=== PATIENT | female | born 1950 | race Caucasian/White ===

== ENCOUNTER → 2017-02-12 | Outpatient (CLI) | payer BC, MEDICARE ==
--- NOTE | 2017-02-13 10:58 | MM ---
Reason for exam: additional evaluation requested from prior study. Last mammogram was performed 6 months ago. History: Patient is postmenopausal and has history of high-risk lesion on a previous biopsy at age 65. Family history of breast cancer in mother at age 74. Benign MG pre op needle loc RT of the right breast, January 30, 2016. Benign US breast aspiration single RT of the right breast, December 27, 2015. High risk US biopsy breast VAD RT of the right breast, December 27, 2015. MG discontinued stereo core RT of the right breast, June 06, 2014. Physical Findings: Nurse did not find any significant physical abnormalities on exam. MG Diagnostic Mammo w CAD ARIELLE Bilateral CC and MLO view(s) were taken. Prior study comparison: August 05, 2016, right breast MG diagnostic mammo RT w CAD. December 27, 2015, right breast MG diagnostic mammo RT wo CAD. There are scattered fibroglandular densities. There is no discrete abnormality at BB on left MLO view. Post surgical changes on the right. No significant new findings when compared with previous films. These results were verbally communicated with the patient and result sheet given to the patient on 02/12/17. ASSESSMENT: Incomplete: need additional imaging evaluation, BI-RAD 0 RECOMMENDATION: Ultrasound of the left breast.
--- NOTE | 2017-02-13 11:01 | USB ---
Reason for exam: additional evaluation requested from abnormal screening. History: Patient is postmenopausal and has history of high-risk lesion on a previous biopsy at age 65. Family history of breast cancer in mother at age 74. Benign MG pre op needle loc RT of the right breast, January 30, 2016. Benign US breast aspiration single RT of the right breast, December 27, 2015. High risk US biopsy breast VAD RT of the right breast, December 27, 2015. MG discontinued stereo core RT of the right breast, June 06, 2014. US Breast Limited BILAT Right breast ultrasound includes all four quadrants, the retroareolar region and axilla. Finding demonstrate a 20 x 19 x 16mm hypoechoic lesion at 5 o'clock shadowing at scar, a 4 x 3 x 3mm cystic cluster lesion at 9 o'clock, and a 4 x 3 x 4mm cystic cluster lesion at 6 o'clock. Left breast ultrasound is negative. These results were verbally communicated with the patient and result sheet given to the patient on 02/12/17. ASSESSMENT: Probably benign, BI-RAD 3 RECOMMENDATION: Follow-up diagnostic mammogram of both breasts in 1 year. Manage patient on a clinical basis.
== END | disposition home or self-care (01) ==
LOC: RADMAMWWP 14:44
PROVIDERS: ATTEND Surgery
DX: R92.2 Inconclusive mammogram (principal); R92.8 Other abnormal and inconclusive findings on diagnostic imaging of breast; Z80.3 Family history of malignant neoplasm of breast
CPT/HCPCS: 76642; G0204

== ENCOUNTER → 2018-03-25 | Outpatient (CLI) | payer MEDICARE ==
--- NOTE | 2018-03-25 08:57 | MM ---
Reason for exam: additional evaluation requested from prior study. Last mammogram was performed 1 year and 1 month ago. History: Patient is postmenopausal and has history of high-risk lesion on a previous biopsy at age 65. Family history of breast cancer in mother at age 74. Benign MG pre op needle loc RT of the right breast, January 30, 2016. Benign US breast aspiration single RT of the right breast, December 27, 2015. High risk US biopsy breast VAD RT of the right breast, December 27, 2015. MG discontinued stereo core RT of the right breast, June 06, 2014. Physical Findings: Nurse did not find any significant physical abnormalities on exam. MG 3D Diag Mammo W/Cad ARIELLE Bilateral CC and MLO view(s) were taken. Prior study comparison: February 12, 2017, bilateral MG diagnostic mammo w CAD ARIELLE. February 12, 2017, bilateral US breast limited BILAT. August 05, 2016, right breast MG diagnostic mammo RT w CAD. August 05, 2016, right breast US breast RT. There are scattered fibroglandular densities. Chronic nodularity subareolar right breast. Post excision changes inferior right breast. Continued improvement from prior but with some residual focal asymmetry that can be reassessed in 6 months. These results were verbally communicated with the patient and result sheet given to the patient on 03/25/18. ASSESSMENT: Incomplete: need additional imaging evaluation, BI-RAD 0 RECOMMENDATION: Ultrasound of the right breast. (as ordered)
--- NOTE | 2018-03-25 08:59 | USB ---
Reason for exam: clinical finding. History: Patient is postmenopausal and has history of high-risk lesion on a previous biopsy at age 65. Family history of breast cancer in mother at age 74. Benign MG pre op needle loc RT of the right breast, January 30, 2016. Benign US breast aspiration single RT of the right breast, December 27, 2015. High risk US biopsy breast VAD RT of the right breast, December 27, 2015. MG discontinued stereo core RT of the right breast, June 06, 2014. US Breast RT Right complete breast ultrasound includes all four quadrants, the retroareolar region and axilla. Finding demonstrates a 1.8 x 1.9 x 1.5cm hypoechoic lesion, shadowing at scar at 5 o'clock, a 0.5 x 0.5 x 0.5cm cystic cluster at 6 o'clock, a 0.2 x 0.5 x 0.4cm cystic cluster at 9 o'clock and a 0.5 x 0.2 x 0.3cm cystic cluster at 3 o'clock. These results were verbally communicated with the patient and result sheet given to the patient on 03/25/18. ASSESSMENT: Probably benign, BI-RAD 3 RECOMMENDATION: Follow-up diagnostic mammogram of the right breast in 6 months.
== END | disposition home or self-care (01) ==
LOC: RADMAMWWP 07:34
PROVIDERS: ATTEND Surgery
DX: N63.10 Unspecified lump in the right breast, unspecified quadrant (principal); N63.20 Unspecified lump in the left breast, unspecified quadrant; R92.8 Other abnormal and inconclusive findings on diagnostic imaging of breast
CPT/HCPCS: 77066; 76641; G0279; 77062

== ENCOUNTER → 2018-03-26 | Outpatient (CLI) | payer BC, MEDICARE ==
[2018-03-26 09:09] VITALS: BP 133/68; PULSE 76; BMI 34.3
--- NOTE | 2018-03-26 09:40 | P.GSHP ---
History of Present Illness H&P Date: 03/26/18 Mrs. Price is a 67-year-old white female who is status post bilateral mammogram and ultrasound of the right breast. The bilateral mammogram was performed on which revealed some chronic nodularity subareolar right breast and post -excision changes inferior right breast. Was recommended she have a right breast ultrasound which revealed a 1.9 cm hypoechoic lesion shadowing eschar at 5:00, a 0.5 cm cystic cluster at 6:00, 8.5 cm cystic cluster at 9:00, and a 0.5 cm cystic cluster at 3:00. These were felt to be probably benign and repeat right breast diagnostic mammogram in 6 months time was recommended. The patient does not feel any masses of concern in her breast. She does not complain of any pain in her breast. She has no nipple discharge or changes of concern. Family history: 1. Mother: Bilateral breast cancer, first at 74 secondary 80 2. Father: Prostate cancer Menarche: 13 Pregnancies: 4 pregnancies, one miscarriage 3 live births, breast fed all for short time, first full-term at 22 Menopause: mid 50's Hormone: none BCP: 1 year Past surgical history: 1. D&C 2. Failed bladder suspension 3. Right breast biopsy Past medical history: 1. SVT 2. Hypertension 3. High cholesterol Social history: Alcohol:negative Smoking: Negative Drugs: Negative Review of systems: HEENT: Glasses for reading Lungs: Negative Heart: Hypertension SVT GI: GERD : None Musculoskeletal: Arthritis Left Knee ALLERGIES: Negative Endocrine: Negative Skin: Negative - Constitutional Constitutional: Denies chills, Denies fever - EENT Eyes: bilateral as per HPI Ears: bilateral: decreased hearing Ears, nose, mouth and throat: Reports as per HPI - Breasts Breasts: bilateral: as per HPI - Cardiovascular Cardiovascular: Reports as per HPI - Respiratory Respiratory: Reports as per HPI - Gastrointestinal Gastrointestinal: Reports as per HPI - Genitourinary (Female) Genitourinary: Reports as per HPI - Menstruation Menstruation: Reports postmenopausal - Genitourinary (Male) Genitourinary: Denies dysuria, Denies hematuria - Musculoskeletal Musculoskeletal: Denies myalgias - Integumentary Integumentary: Reports as per HPI - Neurological Neurological: Denies numbness, Denies weakness - Psychiatric Psychiatric: Denies anxiety, Denies depression - Endocrine Endocrine: Reports as per HPI - Hematologic/Lymphatic Comment: none - Allergic/Immunologic Allergic/Immunologic: Reports as per HPI Past Medical History Past Medical History: GERD/Reflux, Hyperlipidemia, Hypertension, Supraventricular Tachycardia (SVT) Additional Past Medical History / Comment(s): varicose veins, History of Any Multi-Drug Resistant Organisms: None Reported Additional Past Surgical History / Comment(s): breast biopsy, D&C, attempted bladder sling-failed, Past Anesthesia/Blood Transfusion Reactions: Motion Sickness Past Psychological History: No Psychological Hx Reported Smoking Status: Never smoker Past Alcohol Use History: None Reported Past Drug Use History: None Reported - Past Family History Mother Family Medical History: Cancer Additional Family Medical History / Comment(s): breast Father Family Medical History: Cancer, Pulmonary Embolus Medications and Allergies Home Medications Medication Instructions Recorded Confirmed Type Carvedilol [Coreg] 6.25 mg PO BID 01/25/16 03/26/18 History Glucosam/Presley-Msm1/C/Lenny/Bosw 1 each PO DAILY 01/25/16 03/26/18 History [Glucosamine-Chondroitin Tablet] Pantoprazole Sodium [Protonix] 40 mg PO QAM 01/25/16 03/26/18 History Pitavastatin Calcium [Livalo] 1 mg PO HS 01/25/16 03/26/18 History Triamterene/Hydrochlorothiazid 1 cap PO DAILY 01/25/16 03/26/18 History [Dyazide 37.5-25 Capsule] Valsartan 40 tbsp PO DAILY 03/26/18 03/26/18 History Allergies Allergy/AdvReac Type Severity Reaction Status Date / Time codeine Allergy Rash/Hives Verified 01/30/16 08:05 Surgical - Exam Vital Signs Pulse BP Pulse Ox 76 133/68 93 L 03/26/18 09:04 03/26/18 09:04 03/26/18 09:04 - General obese - Eyes normal ocular movement - ENT no hearing loss, no congestion - Neck no masses, trachea midline - Respiratory normal respiratory effort, clear to auscultation - Cardiovascular Rhythm: regular Heart Sounds: normal: S1, S2 - Abdomen Abdomen: soft, non tender, no guarding, no rigid, no rebound - Integumentary Bilateral breast exam: Right breast: Nipple inverted no dominant masses or nodules of concern were multiple positional exam Right axilla: No adenopathy of concern Left breast: Nipple inverted no dominant masses or nodules of concern of multiple positional exam Left axilla: No adenopathy of concern - Neurologic no disoriented, no combative - Musculoskeletal normal gait - Psychiatric oriented to time, oriented to person, oriented to place, speech is normal, memory intact Results mammogram and ultrasound results reviewed Assessment and Plan Assessment: Impression/plan: 1. Abnormal right breast mammograms and ultrasound 2. Hypertension 3. SVT Plan: 1. Repeat right breast mammogram and ultrasound in 6 months time 2. Repeat appointment in 6 months time 3. Medical management of hypertension and SVT CC: DR. Germán Jules, Dr. Moran
== END | disposition home or self-care (01) ==
LOC: WWCWWP 08:59
PROVIDERS: ATTEND Surgery
DX: Z53.9 Procedure and treatment not carried out, unspecified reason (principal)

== ENCOUNTER → 2018-09-25 | Outpatient (CLI) | payer MEDICARE ==
[2018-09-25 09:00] VITALS: BP 144/71; PULSE 66; RESP 18; TEMP 97.1; BMI 35.4
--- NOTE | 2018-09-25 10:00 | P.PN ---
Subjective Progress Note Date: 09/25/18 Principal diagnosis: abnormal right breast mammogram Alia is a 67-year-old white female status post right breast lumpectomy for a lesion of concern in 2016. This was not cancer. The patient had a repeat right breast mammogram performed on 09/25/2018 which was felt to be benign. She does not feel anything of concern in her breast. She has no nipple discharge or skin changes of concern. Family history: 1. Mother bilateral breast cancer first a 74 second at 80 2. Father: Prostate cancer Hormonal history: Menarche: 13 Pregnancies: 4 pregnancies, one miscarriage, 3 live births, breast fed all for a short time, first full-term at 22 Menopause: Mid 50s Hormones: None Procedure post: One year Past surgical history: 1. D&C 2. Failed bladder suspension 3. Right breast biopsy Past medical history: 1. SVT 2. Hypertension 3. High cholesterol Social history: Alcohol: Negative Smoking: Negative Drugs: Negative Review of systems: HEENT: Glasses for reading Lungs: Negative Heart: Hypertension and SVT GI: GERD : Negative Musculoskeletal: Arthritis left knee ALLERGIES: Negative Endocrine: Negative Skin: Negative Objective - Vital Signs Vital signs: Vital Signs Temp 97.1 F L 09/25/18 08:53 Pulse 66 09/25/18 08:53 Resp 18 09/25/18 08:53 BP 144/71 09/25/18 08:53 Pulse Ox 94 L 09/25/18 08:53 Intake & Output 09/24/18 09/25/18 09/25/18 18:59 06:59 18:59 Weight 90.718 kg - Exam BMI 35.4 - Constitutional General appearance: Present: cooperative, obese - EENT Eyes: Present: EOMI ENT: Present: hearing grossly normal - Neck Neck: Present: normal ROM - Respiratory Respiratory: bilateral: CTA - Cardiovascular Rhythm: regular Heart sounds: normal: S1, S2 - Gastrointestinal General gastrointestinal: Present: soft - Integumentary Integumentary: Present: normal turgor - Musculoskeletal Musculoskeletal: Present: gait normal - Psychiatric Psychiatric: Present: A&O x's 3, appropriate affect, intact judgment & insight - Additional findings Additional findings: Breast examination: Right breast: Multi-positional exam no dominant masses or nodules of concern, chronic inversion of the nipple Right axilla: No adenopathy of concern Left breast: Multi-positional exam no dominant masses or nodules of concern, chronic inversion of the nipple Left axilla: No adenopathy of concern - Allied health notes Allied Health Notes Comment(s): Mammogram of the right breast was reviewed with radiology this is felt to be benign and patient will have repeat bilateral diagnostic mammograms in 6 months Assessment and Plan Assessment: Impression: 1. Fibrocystic breast changes 2. Hypertension/SVT 3. GERD Plan: 1. Repeat bilateral mammogram in 6 months time with physician exam at that time 2. Medical management of medical conditions CC: Dr. Cisse, [facility]
--- NOTE | 2018-09-27 09:15 | MM ---
Reason for exam: follow-up at short interval from prior study. Last mammogram was performed 6 months ago. History: Patient is postmenopausal and has history of high-risk lesion on a previous biopsy at age 65. Family history of breast cancer in mother at age 74. Benign MG pre op needle loc RT of the right breast, January 30, 2016. Benign US breast aspiration single RT of the right breast, December 27, 2015. High risk US biopsy breast VAD RT of the right breast, December 27, 2015. MG discontinued stereo core RT of the right breast, June 06, 2014. Physical Findings: Nurse did not find any significant physical abnormalities on exam. MG 3D Diag Mammo W/Cad RT CC and MLO view(s) were taken of the right breast. Prior study comparison: March 25, 2018, bilateral MG 3d diag mammo w/cad ARIELLE. February 12, 2017, bilateral MG diagnostic mammo w CAD ARIELLE. There are scattered fibroglandular densities. No suspicious abnormality. Right lower inner quadrant focal asymmetry appears as fibroglandular tissue adjacent to the lumpectomy site. A precautionary 6 month follow up mammogram will be done. The patient will be due for her bilateral at that time. These results were verbally communicated with the patient and result sheet given to the patient on 09/25/18. ASSESSMENT: Probably benign, BI-RAD 3 RECOMMENDATION: Follow-up diagnostic mammogram of both breasts in 6 months.
== END | disposition home or self-care (01) ==
LOC: RADMAMWWP 06:49
PROVIDERS: ATTEND Surgery
DX: N63.10 Unspecified lump in the right breast, unspecified quadrant (principal)
CPT/HCPCS: 77065; G0279; 77061

== ENCOUNTER → 2019-04-01 | Outpatient (CLI) | payer MEDICARE ==
--- NOTE | 2019-04-01 08:50 | MM ---
Reason for exam: follow-up at short interval from prior study. Last mammogram was performed 6 months ago. History: Patient is postmenopausal and has history of high-risk lesion on a previous biopsy at age 65. Family history of breast cancer in mother at age 74. Benign MG pre op needle loc RT of the right breast, January 30, 2016. Benign US breast aspiration single RT of the right breast, December 27, 2015. High risk US biopsy breast VAD RT of the right breast, December 27, 2015. MG discontinued stereo core RT of the right breast, June 06, 2014. Physical Findings: Nurse did not find any significant physical abnormalities on exam. MG 3D Diag Mammo W/Cad ARIELLE Bilateral CC and MLO view(s) were taken. Prior study comparison: September 25, 2018, right breast MG 3d diag mammo w/cad RT. March 25, 2018, bilateral MG 3d diag mammo w/cad ARIELLE. There are scattered fibroglandular densities. There are clips in the right breast lower quadrant middle position consistent with known excisional biopsy. There are benign appearing round calcifications bilaterally. There is no discrete abnormality. These results were verbally communicated with the patient and result sheet given to the patient on 04/01/19. ASSESSMENT: Benign, BI-RAD 2 RECOMMENDATION: Routine screening mammogram of both breasts in 1 year.
== END | disposition home or self-care (01) ==
LOC: RADMAMWWP 06:51
PROVIDERS: ATTEND Surgery
DX: R92.8 Other abnormal and inconclusive findings on diagnostic imaging of breast (principal)
CPT/HCPCS: 77066; G0279; 77062

== ENCOUNTER → 2019-05-27 | Outpatient (CLI) | payer MEDICARE ==
[2019-05-27 15:17] VITALS: BP 150/85; PULSE 78; RESP 18; TEMP 98.2; BMI 35.4
--- NOTE | 2019-05-27 15:53 | P.PN ---
Subjective Progress Note Date: 05/27/19 Alia is a 68-year-old white female status post right breast lumpectomy for a lesion of concern in 2016. This was not cancer. The patient had a bilateral mammogram performed on 04-01-19 which was felt to be benign. BIRADS 2 repeat mammogram in 1 year. She does not feel anything of concern in her breast. She has no nipple discharge or skin changes of concern. She does not feel any lumps masses or nodules of concern. She is not having any pain in her breast. Lauren Risk Evaluation: 5 year risk: 7.3% lifetime risk: 23% We have discussed genetic counseling the possibility of chemoprevention with an antiestrogen agent will close surveillance. At this time the patient is interested in genetic counseling this will be given information to set up that appointment. Family history: 1. Mother bilateral breast cancer first a 74 second at 80 2. Father: Prostate cancer Hormonal history: Menarche: 13 Pregnancies: 4 pregnancies, one miscarriage, 3 live births, breast fed all for a short time, first full-term at 22 Menopause: Mid 50s Hormones: None Procedure post: One year Past surgical history: 1. D&C 2. Failed bladder suspension 3. Right breast biopsy Past medical history: 1. SVT 2. Hypertension 3. High cholesterol Social history: Alcohol: Negative Smoking: Negative Drugs: Negative Review of systems: HEENT: Glasses for reading Lungs: Negative Heart: Hypertension and SVT GI: GERD : Negative Musculoskeletal: Arthritis left knee hematologic: none neuro: none Psych: none ALLERGIES: Negative Endocrine: Negative Skin: Negative Objective - Vital Signs Vital signs: Vital Signs Temp 98.2 F 05/27/19 15:14 Pulse 78 05/27/19 15:14 Resp 18 05/27/19 15:14 BP 150/85 05/27/19 15:14 Pulse Ox 94 L 05/27/19 15:14 - Exam BMI 35.4 - Constitutional General appearance: Present: obese - EENT Eyes: Present: EOMI ENT: Present: hearing grossly normal - Neck Neck: Present: normal ROM - Respiratory Respiratory: bilateral: CTA - Cardiovascular Rhythm: regular Heart sounds: normal: S1, S2 - Gastrointestinal General gastrointestinal: Present: soft - Integumentary Integumentary: Present: normal turgor - Musculoskeletal Musculoskeletal: Present: gait normal - Psychiatric Psychiatric: Present: A&O x's 3, appropriate affect, intact judgment & insight - Additional findings Additional findings: breast exam: Right breast: Multi-positional exam fibrocystic changes no dominant masses or nodules of concern chronic nipple inversion Right axilla: No adenopathy of concern Left breast: Multi-positional examined fibrocystic changes no dominant mass or notches of concern Left nipple: Chronic inversion Assessment and Plan Assessment: Impression: 1. Bilateral fibrocystic breast changes 2. Bilateral chronic mild nipple inversion 3. Positive family history of breast cancer 4. Positive history of cancer in her father with prostate cancer 5. SVT 6. Hypertension 7. High cholesterol 8. Recent bilateral mammograms BIRADS 2. Repeat bilateral mammogram in March 2020 9. High risk for breast cancer Plan: 1. Repeat bilateral mammogram in 1 year with physician exam at that time 2. Medical management of medical conditions 3. Follow-up 6 months for breast examination secondary to high risk of breast cancer CALISTA: Jorge A
== END ==
LOC: WWCWWP 14:25
PROVIDERS: ATTEND Surgery
DX: Z53.9 Procedure and treatment not carried out, unspecified reason (principal)

== ENCOUNTER → 2019-12-02 | Outpatient (CLI) | payer MEDICARE ==
[2019-12-02 10:49] VITALS: BP 127/83; PULSE 82; RESP 18; TEMP 98.3
--- NOTE | 2019-12-02 11:10 | P.PN ---
Subjective Progress Note Date: 12/02/19 Principal diagnosis: fibrocystic breast changes Alia is a 69-year-old white female who presents for breast examination. She is not complaining of any masses lumps or nodules in her breast. She is not complaining of any recent trauma or infection in the breast. Her last mammogram was performed March 2019 this was considered benign BIRADS 2 and repeat screening mammogram of left breast in 1 year was recommended. She has never had breast cancer but has had an excisional biopsy in the right breast and clips are noted in the mammogram at that site. The patient was going to have genetic testing performed but has not yet had this done. Family history: 1. Mother: Bilateral breast cancer, first at 74 secondary 80 2. Father: Prostate cancer Hormoanl History Menarche: 13 Pregnancies: 4 pregnancies, one miscarriage 3 live births, breast fed all for short time, first full-term at 22 Menopause: mid 50's Hormone: none BCP: 1 year Past surgical history: 1. D&C 2. Failed bladder suspension 3. Right breast biopsy Past medical history: 1. SVT 2. Hypertension 3. High cholesterol Social history: Alcohol:negative Smoking: Negative Drugs: Negative Review of systems: HEENT: Glasses for reading Lungs: Negative Heart: Hypertension, SVT GI: GERD : None Musculoskeletal: Arthritis Left Knee ALLERGIES: Negative Endocrine: Negative Skin: Negative - Constitutional Constitutional: Denies chills, Denies fever - Menstruation Menstruation: Reports postmenopausal - Genitourinary (Male) Genitourinary: Denies dysuria, Denies hematuria - Musculoskeletal Musculoskeletal: Denies myalgias - Integumentary Integumentary: Reports as per HPI - Neurological Neurological: Denies numbness, Denies weakness - Psychiatric Psychiatric: Denies anxiety, Denies depression - - Hematologic/Lymphatic Comment: none - Allergic/Immunologic Allergic/Immunologic: Reports as per HPI Past Medical History Past Medical History: GERD/Reflux, Hyperlipidemia, Hypertension, Supraventricular Tachycardia (SVT) Additional Past Medical History / Comment(s): varicose veins, History of Any Multi-Drug Resistant Organisms: None Reported Additional Past Surgical History / Comment(s): breast biopsy, D&C, attempted bladder sling-failed, Past Anesthesia/Blood Transfusion Reactions: Motion Sickness Past Psychological History: No Psychological Hx Reported Smoking Status: Never smoker Past Alcohol Use History: None Reported Past Drug Use History: None Reported Objective - Vital Signs Vital signs: Vital Signs Temp 98.3 F 12/02/19 10:46 Pulse 82 12/02/19 10:46 Resp 18 12/02/19 10:46 BP 127/83 12/02/19 10:46 Pulse Ox 92 L 12/02/19 10:46 Intake & Output 12/01/19 12/02/19 12/02/19 18:59 06:59 18:59 Weight 90.718 kg - Exam BMI 36.6 - Constitutional General appearance: Present: cooperative - EENT Eyes: Present: EOMI ENT: Present: hearing grossly normal - Neck Neck: Present: normal ROM - Respiratory Respiratory: bilateral: CTA - Cardiovascular Rhythm: regular Heart sounds: normal: S1, S2 - Gastrointestinal General gastrointestinal: Present: soft - Integumentary Integumentary: Present: normal turgor - Musculoskeletal Musculoskeletal: Present: gait normal - Psychiatric Psychiatric: Present: A&O x's 3, appropriate affect, intact judgment & insight - Additional findings Additional findings: breast exam: BRA 40D inspection: bilateral nipple inversion, chronic palpation: right breast: Well-healed scar from prior surgery, multiple positional exam no dominant masses or nodules of concern Right axilla: No adenopathy of concern Left breast: Multiple positional exam. Cystic breast changes no dominant masses or nodules of concern Left axilla: No adenopathy of concern Assessment and Plan Assessment: Impression: 1. Fibrocystic breast changes bilateral no dominant masses or nodules of concern 2. SVT 3. High cholesterol 4. Hypertension Plan: 1. Patient is a bilateral mammogram in March 2020 2. Follow up here after bilateral mammogram 3. Chronic nipple inversion at this time we are not concerned as his stomach this for many years Cc: encounter: 20 minutes, > 50% of time spent in planning and counselling
== END | disposition home or self-care (01) ==
LOC: WWCWWP 10:38
PROVIDERS: ATTEND Surgery
DX: Z53.9 Procedure and treatment not carried out, unspecified reason (principal)

== ENCOUNTER → 2020-04-03 | Outpatient (CLI) | payer MEDICARE ==
--- NOTE | 2020-04-05 07:47 | MM ---
Reason for exam: screening (asymptomatic). Last mammogram was performed 1 year ago. History: Patient is postmenopausal and has history of high-risk lesion on a previous biopsy at age 65. Family history of breast cancer in mother at age 74. Benign MG pre op needle loc RT of the right breast, January 30, 2016. Benign US breast aspiration single RT of the right breast, December 27, 2015. High risk US biopsy breast VAD RT of the right breast, December 27, 2015. MG discontinued stereo core RT of the right breast, June 06, 2014. Physical Findings: A clinical breast exam by your physician is recommended on an annual basis and results should be correlated with mammographic findings. MG 3D Screening Mammo W/Cad Bilateral CC and MLO view(s) were taken. Prior study comparison: April 01, 2019, bilateral MG 3d diag mammo w/cad ARIELLE. September 25, 2018, right breast MG 3d diag mammo w/cad RT. There are scattered fibroglandular densities. No significant changes when compared with prior studies. ASSESSMENT: Benign, BI-RAD 2 RECOMMENDATION: Routine screening mammogram of both breasts in 1 year.
== END | disposition home or self-care (01) ==
LOC: RADMAMWWP 07:16
PROVIDERS: ATTEND Surgery
DX: Z12.31 Encounter for screening mammogram for malignant neoplasm of breast (principal)
CPT/HCPCS: 77063; 77067

== ENCOUNTER → 2021-04-09 | Outpatient (CLI) | payer MEDICARE ==
--- NOTE | 2021-04-12 14:05 | MM ---
Reason for exam: screening (asymptomatic). Last mammogram was performed 1 year ago. History: Patient is postmenopausal and has history of high-risk lesion on a previous biopsy at age 65. Family history of breast cancer in mother at age 74. Benign MG pre op needle loc RT of the right breast, January 30, 2016. Benign US breast aspiration single RT of the right breast, December 27, 2015. High risk US biopsy breast VAD RT of the right breast, December 27, 2015. MG discontinued stereo core RT of the right breast, June 06, 2014. Physical Findings: A clinical breast exam by your physician is recommended on an annual basis and results should be correlated with mammographic findings. MG 3D Screening Mammo W/Cad Bilateral CC and MLO view(s) were taken. Prior study comparison: April 03, 2020, bilateral MG 3d screening mammo w/cad. April 01, 2019, bilateral MG 3d diag mammo w/cad ARIELLE. There are scattered fibroglandular densities. Post surgical changes on right breast. No significant changes when compared with prior studies. ASSESSMENT: Benign, BI-RAD 2 RECOMMENDATION: Routine screening mammogram of both breasts in 1 year.
== END | disposition home or self-care (01) ==
LOC: RADMAMWWP 07:16
PROVIDERS: ATTEND Surgery
DX: Z12.31 Encounter for screening mammogram for malignant neoplasm of breast (principal); Z78.0 Asymptomatic menopausal state; Z80.3 Family history of malignant neoplasm of breast
CPT/HCPCS: 77063; 77067

== ENCOUNTER → 2021-05-31 | Outpatient (CLI) | payer MEDICARE ==
[2021-05-31 08:50] VITALS: BP 143/82; PULSE 76; RESP 12; TEMP 98.2
--- NOTE | 2021-05-31 09:01 | P.PN ---
Subjective Progress Note Date: 05/31/21 Principal diagnosis: Fibrocystic breast changes fibrocystic breast changes Alia is a 69-year-old white female who presents for breast examination. She is not complaining of any masses lumps or nodules in her breast. She is not complaining of any recent trauma or infection in the breast. Her last mammogram was performed March this was considered benign BIRADS 2 and repeat screening mammogram of the breast in 1 year was recommended. She has never had breast cancer but has had an excisional biopsy in the right breast. The patient was going to have genetic testing performed but has not yet had this done. Family history: 1. Mother: Bilateral breast cancer, first at 74 secondary 80 2. Father: Prostate cancer Hormoanl History Menarche: 13 Pregnancies: 4 pregnancies, one miscarriage 3 live births, breast fed all for short time, first full-term at 22 Menopause: mid 50's Hormone: none BCP: 1 year Past surgical history: 1. D&C 2. Failed bladder suspension 3. Right breast biopsy Past medical history: 1. SVT 2. Hypertension 3. High cholesterol Social history: Alcohol:negative Smoking: Negative Drugs: Negative Review of systems: HEENT: Glasses for reading Lungs: Negative Heart: Hypertension, SVT GI: GERD : None Musculoskeletal: Arthritis Left Knee ALLERGIES: Negative Endocrine: Negative Skin: Negative - Constitutional Constitutional: Denies chills, Denies fever - Menstruation Menstruation: Reports postmenopausal - Genitourinary (Male) Genitourinary: Denies dysuria, Denies hematuria - Musculoskeletal Musculoskeletal: Denies myalgias - Integumentary Integumentary: Reports as per HPI - Neurological Neurological: Denies numbness, Denies weakness - Psychiatric Psychiatric: Denies anxiety, Denies depression - - Hematologic/Lymphatic Comment: none - Allergic/Immunologic Allergic/Immunologic: Reports as per HPI Objective - Vital Signs Vital signs: Vital Signs Temp 98.2 F 05/31/21 08:39 Pulse 76 05/31/21 08:39 Resp 12 05/31/21 08:39 BP 143/82 05/31/21 08:39 Pulse Ox 96 05/31/21 08:39 Intake & Output 05/30/21 05/31/21 05/31/21 18:59 06:59 18:59 Weight 92.986 kg - Constitutional General appearance: Present: cooperative - EENT Eyes: Present: EOMI ENT: Present: hearing grossly normal - Neck Neck: Present: normal ROM - Respiratory Respiratory: bilateral: CTA - Cardiovascular Rhythm: regular Heart sounds: normal: S1, S2 - Integumentary Integumentary: Present: normal turgor - Musculoskeletal Musculoskeletal: Present: gait normal - Psychiatric Psychiatric: Present: A&O x's 3, appropriate affect, intact judgment & insight - Additional findings Additional findings: Breast examination: BRA: 40D inspection: bilateral grade 3 ptosis, bilateral chronic nipple inversion, beginning a fungal infection under each breast palpation: right breast: Multi-positional exam fibrocystic changes, no dominant masses or nodules of concern, beginning a fungal infection under her breasts, chronic nipple inversion Right axilla: No adenopathy of concern Left breast: Multi-positional exam fibrocystic changes, no dominant masses or nodules of concern, beginning a fungal infection under the breasts, chronic nipple inversion Left axilla: No adenopathy of concern Assessment and Plan Assessment: Impression: Stable bilateral mammogram March 2021 Chronic nipple inversion Beginning of fungal infection under each breast Fibrocystic breast changes Plan: Nystatin under breast Repeat bilateral mammogram in 1 year Patient to call sooner if any questions or concerns CC: DR. Godinez
== END ==
LOC: WWCWWP 08:30
PROVIDERS: ATTEND Surgery
DX: B48.8 Other specified mycoses (principal); N60.11 Diffuse cystic mastopathy of right breast; N60.12 Diffuse cystic mastopathy of left breast; I10 Essential (primary) hypertension; E78.00 Pure hypercholesterolemia, unspecified; Z88.5 Allergy status to narcotic agent; Z79.899 Other long term (current) drug therapy

== ENCOUNTER → 2021-08-07 | Outpatient (CLI) | payer MEDICARE ==
[2021-08-07 13:31] VITALS: BP 134/83; PULSE 71; RESP 18; TEMP 98.6
--- NOTE | 2021-08-07 14:25 | P.HPOB ---
History of Present Illness H&P Date: 08/07/21 Chief Complaint: The patient is here for her routine gynecologic exam. This is a 70-year-old 013 with an LMP of 2001. The patient is here to establish with this office. It has been about 2 years since her last pelvic exam. Prior to that, she was seen at [facility] for many years. The patient is without gynecologic complaints and denies any postmenopausal bleeding. Review of Systems The patient's weight has been stable over the last year. She denies respiratory, cardiac, or G.I. problems. Past Medical History Past Medical History: GERD/Reflux, Hyperlipidemia, Hypertension, Supravent ricular Tachycardia (SVT) Additional Past Medical History / Comment(s): SVT, varicose veins. PAST FISHER CLAM HISTORY: She has no history of STDs. History of Any Multi-Drug Resistant Organisms: None Reported Additional Past Surgical History / Comment(s): Right breast biopsy, D&C, attempted bladder sling-failed. Colonoscopy 2014(next after 10yr). Colposcopy 2018 (no treatment needed). Past Anesthesia/Blood Transfusion Reactions: Motion Sickness Past Psychological History: No Psychological Hx Reported Smoking Status: Never smoker Past Alcohol Use History: Rare (1 every 3 months.) Additional Past Alcohol Use History / Comment(s): Never smoker Past Drug Use History: None Reported Additional History: She has been since 1971. She is a retired OB nurse. She now watches several of her grandchildren during the week. - Past Family History Mother Family Medical History: Cancer, Myocardial Infarction ([place]) Additional Family Medical History / Comment(s): breast cancer. Father Family Medical History: Cancer, Pulmonary Embolus Additional Family Medical History / Comment(s): Parkinson's disease. Brother(s) Family Medical History: Diabetes Mellitus Medications and Allergies Home Medications Medication Instructions Recorded Confirmed Type Carvedilol [Coreg] 6.25 mg PO BID 01/25/16 08/07/21 History Glucosam/Presley-Msm1/C/Lenny/Bosw 1 each PO QAM 01/25/16 08/07/21 History [Glucosamine-Chondroitin Tablet] Pantoprazole Sodium [Protonix] 40 mg PO QAM 01/25/16 08/07/21 History Triamterene/Hydrochlorothiazid 1 cap PO QAM 01/25/16 08/07/21 History [Dyazide 37.5-25 Capsule] Multivitamins, Thera [Multivitamin 1 tab PO QAM 09/25/18 08/07/21 History (formulary)] amLODIPine BESYLATE [Norvasc] 2.5 mg PO QAM 09/25/18 08/07/21 History Alirocumab [Praluent Pen] 75 mg SQ DAILY 08/07/21 08/07/21 History Allergies Allergy/AdvReac Type Severity Reaction Status Date / Time codeine Allergy Rash/Hives Verified 08/07/21 13:25 Exam Vital Signs Temp Pulse Resp BP Pulse Ox 08/07/21 13:27 98.6 F 71 18 134/83 95 Intake and Output 08/06/21 08/07/21 08/07/21 22:59 06:59 14:59 Other: Weight 91.626 kg Height 5 feet 3 inches, weight 202 pounds, BMI 35.8. This is a well-developed well-nourished white female who is alert and oriented times 3 in no acute distress. HEENT: Within normal limits. NECK: Supple without mass or thyromegaly. CHEST AND LUNGS: Clear to auscultation. HEART: Regular rate and rhythm. BREASTS: Are without mass or discharge. There is bilateral nipple inversion that the patient states she has had for many years. AXILLARY EXAM: Negative for adenopathy. BACK: Negative for CVA tenderness. ABDOMEN: Soft, nontender, without palpable masses. PELVIC EXAM: Normal external genitalia with mild atrophy. Cervix and vagina appear normal with mild atrophy. There is no unusual discharge. There is no evidence of prolapse. The uterus is midposition, nongravid size and nontender. There are no palpable adnexal masses or tenderness. RECTAL EXAM: Rectovaginal exam is negative for mass or tenderness and is negative for occult blood. EXTREMITIES: Nontender. IMPRESSION: 1. 70-year-old menopausal female with normal gynecologic exam. PLAN: 1. Pap smear was performed. We will get the records of her last 15 years of Pap smears from [facility]. After reviewing these records we will determine if she can discontinue Pap smears. 2. Self breast awareness was discussed with the patient. We have also discussed symptoms associated with inflammatory breast cancer. 3. Last mammogram was in March 2021. She will repeat this after 1 year. She continues to see Dr. Gabe Corrigan, who did her breast biopsy, 4 breast exams. 4. Osteoporosis prevention was discussed. I have stressed the importance of adequate calcium, vitamin D and regular exercise. Recommended amounts of calcium and vitamin D were also discussed. I have recommended bone density testing since it has been many years since this has been done per the patient. 5. She has completed her Covid vaccination series and booster. 6. The patient was advised to return in 1-2 years for her well woman examination.
== END ==
LOC: WWCWWP 12:49
PROVIDERS: ATTEND Obstetrics & Gynecology
DX: Z01.419 Encounter for gynecological examination (general) (routine) without abnormal findings (principal); E78.5 Hyperlipidemia, unspecified; I10 Essential (primary) hypertension; Z88.5 Allergy status to narcotic agent

== ENCOUNTER → 2022-04-11 | Outpatient (CLI) | payer MEDICARE ==
--- NOTE | 2022-04-12 16:52 | MM ---
Reason for Exam: Screening (asymptomatic). Last screening mammogram was performed 12 month(s) ago. Patient History: Menarche at age 13. First Full-Term at age 22. Postmenopausal. 01/30/2016, Benign Core Biopsy on the right side. 12/27/2015, Benign Cyst Aspiration on the right side. 12/27/2015, High risk Core Biopsy on the right side. 06/06/2014, MG discontinued stereo core RT on the right side. Mother had breast cancer, age 74. Risk Values: Lauren 5 year model risk: 4.9%. NCI Lifetime model risk: 13.9%. Prior Study Comparison: 04/01/2019 Bilateral Diagnostic Mammogram, [facility]. 04/03/2020 Bilateral Screening Mammogram, [facility]. 04/09/2021 Bilateral Screening Mammogram, [facility]. Tissue Density: There are scattered fibroglandular densities. Findings: Analyzed By CAD. Surgical clips are within the right breast. Some postsurgical changes within the right breast. No suspicious groups of microcalcifications, spiculated or lobular masses, architectural distortion or other secondary signs of malignancy are mammographically apparent. Overall Assessment: Benign, BI-RAD 2 Management: Screening Mammogram of both breasts in 1 year. A negative mammogram report should not preclude additional follow up of suspicious palpable abnormalities. Patient should continue monthly self breast exam. A clinical breast exam by your physician is recommended on an annual basis and results should be correlated with mammographic findings. Electronically signed and approved by: Claudio Wiseman D.O. Radiologis
== END | disposition home or self-care (01) ==
LOC: RADMAMWWP 06:55
PROVIDERS: ATTEND Surgery
DX: Z12.31 Encounter for screening mammogram for malignant neoplasm of breast (principal); Z78.0 Asymptomatic menopausal state; Z80.3 Family history of malignant neoplasm of breast
CPT/HCPCS: 77063; 77067

== ENCOUNTER → 2022-07-19 | Outpatient (CLI) | payer MEDICARE ==
[2022-07-19 12:48] VITALS: BP 152/79; PULSE 88; RESP 16
--- NOTE | 2022-07-19 13:46 | P.PN ---
Subjective Progress Note Date: 07/19/22 Principal diagnosis: Fibrocystic breast disease fibrocystic breast changes Alia is a 69-year-old white female who presents for breast examination. She is not complaining of any masses lumps or nodules in her breast. She is not complaining of any recent trauma or infection in the breast. Her last mammogram was performed April 11, 2022 this was considered benign BIRADS 2 and repeat screening mammogram of the breast in 1 year was recommended. She has never had breast cancer but has had an excisional biopsy in the right breast. The patient was going to have genetic testing performed but has not yet had this done. Lauren Risk: 4.9% Patient has declined hormone risk reduction at this time. Family history: 1. Mother: Bilateral breast cancer, first at 74 secondary 80 2. Father: Prostate cancer Hormoanl History Menarche: 13 Pregnancies: 4 pregnancies, one miscarriage 3 live births, breast fed all for short time, first full-term at 22 Menopause: mid 50's Hormone: none BCP: 1 year Past surgical history: 1. D&C 2. Failed bladder suspension 3. Right breast biopsy Past medical history: 1. SVT 2. Hypertension 3. High cholesterol Social history: Alcohol:negative Smoking: Negative Drugs: Negative Review of systems: HEENT: Glasses for reading Lungs: Negative Heart: Hypertension, SVT GI: GERD : None Musculoskeletal: Arthritis Left Knee ALLERGIES: Negative Endocrine: Negative Skin: Negative - Constitutional Constitutional: Denies chills, Denies fever - Menstruation Menstruation: Reports postmenopausal - Genitourinary (Male) Genitourinary: Denies dysuria, Denies hematuria - Musculoskeletal Musculoskeletal: Denies myalgias - Integumentary Integumentary: Reports as per HPI - Neurological Neurological: Denies numbness, Denies weakness - Psychiatric Psychiatric: Denies anxiety, Denies depression - - Hematologic/Lymphatic Comment: none - Allergic/Immunologic Allergic/Immunologic: Reports as per HPI Objective - Vital Signs Vital signs: Vital Signs Temp Pulse 88 07/19/22 12:45 Resp 16 07/19/22 12:45 BP 152/79 07/19/22 12:45 Pulse Ox 95 07/19/22 12:45 FiO2 Intake & Output 07/18/22 07/19/22 07/19/22 18:59 06:59 18:59 Weight 92.986 kg - Constitutional General appearance: Present: cooperative - EENT Eyes: Present: EOMI ENT: Present: hearing grossly normal - Neck Neck: Present: normal ROM - Respiratory Respiratory: bilateral: CTA - Cardiovascular Heart sounds: normal: S1, S2 - Gastrointestinal General gastrointestinal: Present: soft - Integumentary Integumentary: Present: normal turgor - Musculoskeletal Musculoskeletal: Present: gait normal - Psychiatric Psychiatric: Present: A&O x's 3, appropriate affect, intact judgment & insight - Additional findings Additional findings: Breast Exam: BRA: 40D Inspection: Bilateral nipple inversion central portion Bilateral grade 2 ptosis Palpation: Right breast: Multi-positional exam fibrocystic changes no dominant masses or nodules of concern Right axilla: No adenopathy of concern Left breast: Multi-positional exam fibrocystic changes no dominant masses or nodules of concern Left axilla: No adenopathy of concern Assessment and Plan Assessment: Impression: Bilateral fibrocystic breast changes Bilateral chronic nipple inversion Plan: Bilateral mammogram in March 2023 with physician exam at that time She to follow up sooner any questions or concerns Cc: Dr. Rivers
== END | disposition home or self-care (01) ==
LOC: WWCWWP 12:07
PROVIDERS: ATTEND Surgery
DX: Z53.9 Procedure and treatment not carried out, unspecified reason (principal)

== ENCOUNTER → 2023-04-14 | Outpatient (CLI) | payer MEDICARE ==
--- NOTE | 2023-04-15 08:39 | MM ---
Reason for Exam: Screening (asymptomatic). Last screening mammogram was performed 12 month(s) ago. Patient History: Menarche at age 13. First Full-Term at age 22. Postmenopausal. 01/30/2016, Benign Core Biopsy on the right side. 12/27/2015, Benign Cyst Aspiration on the right side. 12/27/2015, High risk Core Biopsy on the right side. 06/06/2014, MG discontinued stereo core RT on the right side. Mother had breast cancer, age 74. Risk Values: Lauren 5 year model risk: 5.0%. NCI Lifetime model risk: 13.3%. Prior Study Comparison: 04/03/2020 Bilateral Screening Mammogram, [facility]. 04/09/2021 Bilateral Screening Mammogram, [facility]. 04/11/2022 Bilateral MG 3D screening mammo w/cad, [facility]. Tissue Density: There are scattered fibroglandular densities. Findings: Analyzed By CAD. There is no suspicious group of microcalcifications or new suspicious mass in either breast. Postsurgical changes of the right breast. Benign-appearing calcifications within both breasts. Overall Assessment: Benign, BI-RAD 2 Management: Screening Mammogram of both breasts in 1 year. A clinical breast exam by your physician is recommended on an annual basis and results should be correlated with mammographic findings. Note on Lauren scores and lifetime risk: 1. A Lauren score greater than 3% is considered moderate risk. If this is the case, consider specialist referral to assess eligibility for a risk reducing agent. If overall lifetime risk for the development of breast cancer is 20% or higher, the patient may qualify for future screening with alternating mammogram and breast MRI. Electronically signed and approved by: Flash Csota D.O.
== END | disposition home or self-care (01) ==
LOC: RADMAMWWP 09:42
PROVIDERS: ATTEND Surgery
DX: Z12.31 Encounter for screening mammogram for malignant neoplasm of breast (principal); Z78.0 Asymptomatic menopausal state; Z80.3 Family history of malignant neoplasm of breast
CPT/HCPCS: 77063; 77067

== ENCOUNTER → 2023-06-05 | Outpatient (CLI) | payer MEDICARE ==
[2023-06-05 15:09] VITALS: BP 151/79; PULSE 86; RESP 17; TEMP 98.3
--- NOTE | 2023-06-05 15:23 | P.PN ---
Subjective Progress Note Date: 06/05/23 Principal diagnosis: fibrocystic breast disease fibrocystic breast changes Alia is a 72-year-old white female who presents for breast examination. She is not complaining of any masses lumps or nodules in her breast. She is not complaining of any recent trauma or infection in the breast. Her last mammogram was performed April 14 this was considered benign BIRADS 2 and repeat screening mammogram of the breast in 1 year was recommended. She has never had breast cancer but has had an excisional biopsy in the right breast. Lauren Risk: 5% Patient has declined prophylaxis at this time. She is interested in genetic testing she is going to pursue this. Family history: 1. Mother: Bilateral breast cancer, first at 74 secondary 80 2. Father: Prostate cancer Hormoanl History Menarche: 13 Pregnancies: 4 pregnancies, one miscarriage 3 live births, breast fed all for short time, first full-term at 22 Menopause: mid 50's Hormone: none BCP: 1 year Past surgical history: 1. D&C 2. Failed bladder suspension 3. Right breast biopsy 4. carpel tunnel right wrist and right thumb reconstruction. Past medical history: 1. SVT 2. Hypertension 3. High cholesterol Social history: Alcohol:negative Smoking: Negative Drugs: Negative Review of systems: HEENT: Glasses for reading Lungs: Negative Heart: Hypertension, SVT GI: GERD : None Musculoskeletal: Arthritis Left Knee ALLERGIES: Negative Endocrine: Negative Skin: Negative - Constitutional Constitutional: Denies chills, Denies fever - Menstruation Menstruation: Reports postmenopausal - Genitourinary (Male) Genitourinary: Denies dysuria, Denies hematuria - Musculoskeletal Musculoskeletal: Denies myalgias - Integumentary Integumentary: Reports as per HPI - Neurological Neurological: Denies numbness, Denies weakness - Psychiatric Psychiatric: Denies anxiety, Denies depression - - Hematologic/Lymphatic Comment: none - Allergic/Immunologic Allergic/Immunologic: Reports as per HPI Objective - Vital Signs Vital signs: Vital Signs Temp 98.3 F 06/05/23 15:07 Pulse 86 06/05/23 15:07 Resp 17 06/05/23 15:07 BP 151/79 06/05/23 15:07 Pulse Ox 95 06/05/23 15:07 FiO2 Intake & Output 06/04/23 06/05/23 06/05/23 18:59 06:59 18:59 Weight 93.894 kg - Constitutional General appearance: Present: cooperative - EENT Eyes: Present: EOMI ENT: Present: hearing grossly normal - Neck Neck: Present: normal ROM - Respiratory Respiratory: bilateral: CTA - Cardiovascular Rhythm: regular Heart sounds: normal: S1, S2 - Integumentary Integumentary: Present: normal turgor - Musculoskeletal Musculoskeletal: Present: gait normal - Psychiatric Psychiatric: Present: A&O x's 3, appropriate affect, intact judgment & insight - Additional findings Additional findings: Breast Exam: BRA: 40D Inspection: Bilateral nipple inversion central portion Bilateral grade 2 ptosis Palpation: Right breast: Multi-positional exam fibrocystic changes no dominant masses or nodules of concern Right axilla: No adenopathy of concern Left breast: Multi-positional exam fibrocystic changes no dominant masses or nodules of concern Left axilla: No adenopathy of concern Assessment and Plan Assessment: Impression: Bilateral fibrocystic breast changes Bilateral chronic nipple inversion Plan: Bilateral mammogram in March 2024 with physician exam at that time She to follow up sooner any questions or concerns Cc: Dr. Rivers
== END ==
LOC: WWCWWP 14:55
PROVIDERS: ATTEND Surgery
DX: N60.11 Diffuse cystic mastopathy of right breast (principal); N60.12 Diffuse cystic mastopathy of left breast; I10 Essential (primary) hypertension; E78.00 Pure hypercholesterolemia, unspecified; N64.59 Other signs and symptoms in breast; Z80.3 Family history of malignant neoplasm of breast; Z88.5 Allergy status to narcotic agent

== ENCOUNTER → 2023-08-19 | Outpatient (CLI) | payer MEDICARE ==
[2023-08-19 09:27] VITALS: BP 119/73; PULSE 69; RESP 18; TEMP 98.5
--- NOTE | 2023-08-19 10:19 | P.HPOB ---
History of Present Illness H&P Date: 08/19/23 Chief Complaint: The patient is here for her routine gynecologic exam. This is a 72-year-old 013 with an LMP of 2002. The patient has been experiencing some urinary leakage which has gotten worse over the past 6 months. She states she notices the leakage mostly with coughing and sneezing. She denies urge incontinence. She is otherwise without gynecologic complaints. She does have a history of a low-grade DELROY colposcopic biopsy follow-up high-risk HPV testing was negative on 06/09/2019. No Pap smear was done at that time. The first Pap smear done here was on 08/07/2021 and was negative. Review of Systems The patient's weight has been stable over the last year. She denies respiratory, cardiac, or G.I. problems. : Stress urinary incontinence symptoms as in the HPI. She denies UTI symptoms. Past Medical History Past Medical History: GERD/Reflux, Hyperlipidemia, Hypertension, Supraventricular Tachycardia (SVT) Additional Past Medical History / Comment(s): SVT, varicose veins. Right hip problems. 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 History of Any Multi-Drug Resistant Organisms: None Reported Additional Past Surgical History / Comment(s): Right breast biopsy, D&C, attempted bladder sling-failed. Carpal tunnel and thumb surgery. Colonoscopy 2014(next after 10yr). Colposcopy 2018 (no treatment needed). Past Anesthesia/Blood Transfusion Reactions: Motion Sickness Past Psychological History: No Psychological Hx Reported (PHQ-2 questionaire was given and she scores 0. This is a negative screen for depression.) Smoking Status: Never smoker Past Alcohol Use History: Rare (1 drink every 3 months.) Additional Past Alcohol Use History / Comment(s): Never smoker Past Drug Use History: None Reported Additional History: She has been since 1971. She is a retired OB nurse. She watches several of her grandchildren during the week. - Past Family History Mother Family Medical History: Cancer, Dementia, Myocardial Infarction ([place]) Additional Family Medical History / Comment(s): breast cancer. Father Family Medical History: Cancer, Pulmonary Embolus Additional Family Medical History / Comment(s): Parkinson's disease. Brother(s) Family Medical History: Diabetes Mellitus Medications and Allergies Home Medications Medication Instructions Recorded Confirmed Type Carvedilol [Coreg] 6.25 mg PO BID 01/25/16 08/19/23 History Glucosam/Presley-Msm1/C/Lenny/Bosw 1 each PO QAM 01/25/16 08/19/23 History [Glucosamine-Chondroitin Tablet] Pantoprazole Sodium [Protonix] 40 mg PO QAM 01/25/16 08/19/23 History Triamterene/Hydrochlorothiazid 1 cap PO QAM 01/25/16 08/19/23 History [Dyazide 37.5-25 Capsule] Multivitamins, Thera [Multivitamin 1 tab PO QAM 09/25/18 08/19/23 History (formulary)] amLODIPine BESYLATE [Norvasc] 2.5 mg PO QAM 09/25/18 08/19/23 History Evolocumab [Repatha Sureclick] 0 mg SQ DAILY 08/19/23 08/19/23 History Allergies Allergy/AdvReac Type Severity Reaction Status Date / Time codeine Allergy Rash/Hives Verified 08/19/23 09:00 Exam Vital Signs Temp Pulse Resp BP Pulse Ox 08/19/23 09:00 98.5 F 69 18 119/73 97 Intake and Output 08/18/23 08/19/23 08/19/23 22:59 06:59 14:59 Other: Weight 91.626 kg Height 5 feet 4 inches, weight 202 pounds, BMI 34.7. This is a well-developed well-nourished white female who is alert and oriented times 3 in no acute distress. HEENT: Within normal limits. NECK: Supple without mass or thyromegaly. CHEST AND LUNGS: Clear to auscultation. HEART: Regular rate and rhythm. BREASTS: Are without mass or discharge. There is bilateral nipple inversion which the patient states she has had for many years. AXILLARY EXAM: Negative for adenopathy. BACK: Negative for CVA tenderness. ABDOMEN: Soft, nontender, without palpable masses. PELVIC EXAM: Normal external genitalia with mild to moderate atrophy. Cervix and vagina appear normal mild atrophy. There is no unusual discharge. There is no evidence of prolapse. There is minimal urethral mobility with cough and Valsalva. No urinary leakage was noted during these maneuvers. A small amount of urinary leakage was noted prior to examining her. The uterus is midposition, nongravid size and nontender. There are no palpable adnexal masses or tenderness. RECTAL EXAM: Rectovaginal exam is negative for mass or tenderness and is negative for occult blood. There seems to be decreased anal and vaginal tone with week contraction of these muscles when asked to tighten these muscles. EXTREMITIES: Nontender. IMPRESSION: 1. 72-year-old menopausal female with worsening stress urinary incontinence without significant urethral mobility. She is status post previous sling procedure years ago. 2. Previous low-grade DELROY colposcopic findings on 07/16/2018. Negative high- risk HPV testing on 06/09/2019. She also had a negative Pap smear on 08/07/2021. PLAN: 1. Pap smear was performed. We will continue doing Pap smears every 2 years until we have had 3 negative Pap smears. 2. Self breast awareness was discussed with the patient. We have also discussed symptoms associated with inflammatory breast cancer. 3. Screening mammogram was done on 04/14/[address] Gabe Carrion and this was benign. 4. Osteoporosis prevention was discussed. I have stressed the importance of adequate calcium, vitamin D and regular exercise. Recommended amounts of calcium and vitamin D were also discussed. She states she had a bone density test done at [facility] 1-2 years ago and she believes it was normal. She will try to have this sent to me. 5. PHQ-2 questionaire was given and she scores 0. This is a negative screen for depression. 6. We have discussed doing kegal exercises and timed voids. Instructions were discussed with the patient. If she does not notice improvement over the next 3 months, she will call and we will insert a referral to a gynecologic urologist. 7. The patient was advised to return in 1-2 years for her well woman examination and as needed.
== END ==
LOC: WWCWWP 08:47
PROVIDERS: ATTEND Obstetrics & Gynecology
DX: N39.3 Stress incontinence (female) (male) (principal); I10 Essential (primary) hypertension; E78.5 Hyperlipidemia, unspecified; K21.9 Gastro-esophageal reflux disease without esophagitis; Z78.0 Asymptomatic menopausal state; Z98.890 Other specified postprocedural states; Z80.3 Family history of malignant neoplasm of breast; Z86.79 Personal history of other diseases of the circulatory system; Z87.891 Personal history of nicotine dependence; Z88.5 Allergy status to narcotic agent; Z79.899 Other long term (current) drug therapy

== ENCOUNTER → 2024-04-15 | Outpatient (CLI) | payer MEDICARE ==
--- NOTE | 2024-05-11 12:29 | MM ---
Reason for Exam: Screening (asymptomatic). Last mammogram was performed 1 year(s) and 1 month(s) ago. Patient History: Menarche at age 13. First Full-Term at age 22. Postmenopausal. 01/30/2016, Benign Core Biopsy on the right side. 12/27/2015, Benign Cyst Aspiration on the right side. 12/27/2015, High risk Core Biopsy on the right side. 06/06/2014, MG discontinued stereo core RT on the right side. Mother had breast cancer, age 74. Risk Values: Lauren 5 year model risk: 5.0%. NCI Lifetime model risk: 12.6%. Prior Study Comparison: 04/09/2021 Bilateral Screening Mammogram, [facility]. 04/11/2022 Bilateral MG 3D screening mammo w/cad, [facility]. 04/14/2023 Bilateral MG 3D screening mammo w/cad, [facility]. Tissue Density: The breasts are almost entirely fatty. Findings: Analyzed By CAD. Left breast surgical clips. Right breast: There is no suspicious group of microcalcifications or new suspicious mass. Left breast: There is no suspicious group of microcalcifications or new suspicious mass. Overall Assessment: Negative, BI-RAD 1 Management: Screening Mammogram of both breasts in [address] [facility] will attempt to contact patient to return for supplemental views and ultrasound if indicated. Patient should continue monthly self-breast exams. A clinical breast exam by your physician is recommended on an annual basis. This exam should not preclude additional follow-up of suspicious palpable abnormalities. Note on Lauren scores and lifetime risk: 1. A Lauren score greater than 3% is considered moderate risk. If this is the case, consider specialist referral to assess eligibility for a risk reducing agent. 2. If overall lifetime risk for the development of breast cancer is 20% or higher, the patient may qualify for future screening with alternating mammogram and breast MRI. Electronically signed and approved by: Heri Weller DO
== END | disposition home or self-care (01) ==
LOC: RADMAMWWP 11:01
PROVIDERS: ATTEND Surgery
DX: Z12.31 Encounter for screening mammogram for malignant neoplasm of breast (principal); Z78.0 Asymptomatic menopausal state; Z80.3 Family history of malignant neoplasm of breast
CPT/HCPCS: 77063; 77067

== ENCOUNTER → 2024-05-21 | Outpatient (CLI) | payer MEDICARE ==
[2024-05-21 11:18] VITALS: BP 161/76; RESP 16; TEMP 98.7
--- NOTE | 2024-05-21 11:59 | P.PN ---
Subjective Progress Note Date: 05/21/24 Principal diagnosis: fibrocystic breast fibrocystic breast changes Alia is a 73-year-old white female who presents for breast examination. She is not complaining of any masses lumps or nodules in her breast. She is not complaining of any recent trauma or infection in the breast. Her last mammogram was performed 04-15-24 this was considered benign BIRADS 1 and repeat screening mammogram of the breast in 1 year was recommended. This was personally reviewed and interpreted. She has never had breast cancer but has had an excisional biopsy in the right breast. Lauren Risk: 5% lifetime risk: 12.6% Patient has declined prophylaxis at this time. She is going to going to consider genetic counselling. Family history: 1. Mother: Bilateral breast cancer, first at 74 secondary 80 2. Father: Prostate cancer Hormoanl History Menarche: 13 Pregnancies: 4 pregnancies, one miscarriage 3 live births, breast fed all for short time, first full-term at 22 Menopause: mid 50's Hormone: none BCP: 1 year Past surgical history: 1. D&C 2. Failed bladder suspension 3. Right breast biopsy 4. carpel tunnel right wrist and right thumb reconstruction. 5. right hip replacement Past medical history: 1. SVT 2. Hypertension 3. High cholesterol 4. takes a baby aspirin Social history: Alcohol:negative Smoking: Negative Drugs: Negative Review of systems: HEENT: Glasses for reading Lungs: Negative Heart: Hypertension, SVT GI: GERD : None Musculoskeletal: Arthritis Left Knee ALLERGIES: Negative Endocrine: Negative Skin: Negative - Constitutional Constitutional: Denies chills, Denies fever - Menstruation Menstruation: Reports postmenopausal - Genitourinary (Male) Genitourinary: Denies dysuria, Denies hematuria - Musculoskeletal Musculoskeletal: Denies myalgias - Integumentary Integumentary: Reports as per HPI - Neurological Neurological: Denies numbness, Denies weakness - Psychiatric Psychiatric: Denies anxiety, Denies depression - - Hematologic/Lymphatic Comment: none - Allergic/Immunologic Allergic/Immunologic: Reports as per HPI Objective - Vital Signs Vital signs: Vital Signs Temp 98.7 F 05/21/24 11:15 Pulse Resp 16 05/21/24 11:15 BP 161/76 05/21/24 11:15 Pulse Ox 94 L 05/21/24 11:15 FiO2 Intake & Output 05/20/24 05/21/24 05/21/24 18:59 06:59 18:59 Weight 92.986 kg - Constitutional General appearance: Present: cooperative - EENT Eyes: Present: EOMI ENT: Present: hearing grossly normal - Neck Neck: Present: normal ROM - Respiratory Respiratory: bilateral: CTA - Cardiovascular Heart sounds: normal: S1, S2 - Gastrointestinal General gastrointestinal: Present: soft - Integumentary Integumentary: Present: normal turgor - Musculoskeletal Musculoskeletal: Present: gait normal - Psychiatric Psychiatric: Present: A&O x's 3, appropriate affect, intact judgment & insight - Additional findings Additional findings: Breast Exam: BRA: 40D Inspection: Bilateral nipple inversion, fungal infection under each breast Bilateral grade 2 ptosis Palpation: Right breast: Multi-positional exam fibrocystic changes no dominant masses or nodules of concern Right axilla: No adenopathy of concern Left breast: Multi-positional exam fibrocystic changes no dominant masses or nodules of concern Left axilla: No adenopathy of concern Assessment and Plan Assessment: Impression: Bilateral fibrocystic breast changes Bilateral chronic nipple inversion bilateral fungal infection Plan: Bilateral mammogram in April 2025 with physician exam at that time nystatin under breast She will follow up sooner any questions or concerns Cc: Dr. Rivers
== END ==
LOC: WWCWWP 08:57
PROVIDERS: ATTEND Surgery
DX: N60.11 Diffuse cystic mastopathy of right breast (principal); N60.12 Diffuse cystic mastopathy of left breast; B48.8 Other specified mycoses; N64.59 Other signs and symptoms in breast; Z80.3 Family history of malignant neoplasm of breast; Z88.5 Allergy status to narcotic agent

== ENCOUNTER → 2024-08-24 | Outpatient (CLI) | payer MEDICARE ==
[2024-08-24 08:28] VITALS: BP 138/80; PULSE 65; RESP 17; TEMP 97.8
--- NOTE | 2024-08-24 08:37 | P.HPOB ---
History of Present Illness H&P Date: 08/24/24 Chief Complaint: The patient is here for routine gynecologic exam. This is a 73-year-old -0-1-3 with an LMP of 2001. The patient is without gynecologic complaints and denies any postmenopausal bleeding. She has a history of chronic ASCUS Pap smears with negative high-risk HPV testing. Her last Pap smear on 08/19/2023 showed ASCUS with negative high-risk HPV testing. Review of Systems The patient has gained 30 pounds over the last year. She denies respiratory, cardiac, or G.I. problems. Past Medical History Past Medical History: GERD/Reflux, Hyperlipidemia, Hypertension, Supraventricular Tachycardia (SVT) Additional Past Medical History / Comment(s): SVT, varicose veins. Right hip problems. 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 History of Any Multi-Drug Resistant Organisms: None Reported Past Surgical History: Joint Replacement, Orthopedic Surgery Additional Past Surgical History / Comment(s): Right breast biopsy, D&C, attempted bladder sling-failed. Carpal tunnel and thumb surgery. Right hip replacement. Colonoscopy 2014(next after 10yr). Colposcopy 2018 (no treatment n eeded). Past Anesthesia/Blood Transfusion Reactions: Motion Sickness Past Psychological History: No Psychological Hx Reported Smoking Status: Never smoker Past Alcohol Use History: Rare (3 drinks per year.) Additional Past Alcohol Use History / Comment(s): Never smoker Past Drug Use History: None Reported Additional History: She has been since 1971 and is not sexually active. She is a retired OB nurse. - Past Family History Mother Family Medical History: Cancer, Dementia, Myocardial Infarction ([place]) Additional Family Medical History / Comment(s): breast cancer. Father Family Medical History: Cancer, Pulmonary Embolus Additional Family Medical History / Comment(s): Parkinson's disease. Brother(s) Family Medical History: Diabetes Mellitus Medications and Allergies Home Medications Medication Instructions Recorded Confirmed Type Carvedilol [Coreg] 6.25 mg PO BID 01/25/16 08/19/23 History Glucosam/Presley-Msm1/C/Lenny/Bosw 1 each PO QAM 01/25/16 08/19/23 History [Glucosamine-Chondroitin Tablet] Triamterene/Hydrochlorothiazid 1 cap PO QAM 01/25/16 08/19/23 History [Dyazide 37.5-25 Capsule] Multivitamins, Thera [Multivitamin 1 tab PO QAM 09/25/18 08/19/23 History (formulary)] amLODIPine BESYLATE [Norvasc] 2.5 mg PO QAM 09/25/18 08/19/23 History Evolocumab [Repatha Sureclick] 0 mg SQ DAILY 08/19/23 08/19/23 History Aspirin [[place] Aspirin EC] 81 mg PO DAILY 08/24/24 08/24/24 History Pantoprazole [Protonix] 40 mg PO DAILY 08/24/24 08/24/24 History Allergies Allergy/AdvReac Type Severity Reaction Status Date / Time codeine Allergy Rash/Hives Verified 08/24/24 08:12 Exam Vital Signs Temp Pulse Resp BP Pulse Ox 08/24/24 08:24 97.8 F 65 17 138/80 96 Intake and Output 08/23/24 08/24/24 08/24/24 22:59 06:59 14:59 Other: Weight 107.955 kg Height 5 feet 4 inches, weight 238 pounds, BMI 40.9. This is a well-developed well-nourished white female who is alert and oriented times 3 in no acute distress. HEENT: Within normal limits. NECK: Supple without mass or thyromegaly. CHEST AND LUNGS: Clear to auscultation. HEART: Regular rate and rhythm. BREASTS: Are without mass or discharge. AXILLARY EXAM: Negative for adenopathy. BACK: Negative for CVA tenderness. ABDOMEN: Soft, nontender, without palpable masses. PELVIC EXAM: Normal external genitalia mild atrophy. Cervix and vagina appear normal with mild atrophy. There is no unusual discharge. There is no evidence of prolapse. The uterus is midposition, nongravid size and nontender. There are no palpable adnexal masses or tenderness. RECTAL EXAM: Rectovaginal exam is negative for mass or tenderness and is negative for occult blood. EXTREMITIES: Nontender. IMPRESSION: 1. 73-year-old menopausal female with normal gynecologic exam. 2. History of many ASCUS Pap smears with negative high-risk HPV testing in the past. Previous low-grade DELROY colposcopic findings on 07/16/2018. Her most recent Pap smear on 08/19/2023 showed ASCUS with negative high-risk HPV testing. PLAN: 1. Pap smear cotest was performed. 2. Self breast awareness was discussed with the patient. We have also discussed symptoms associated with inflammatory breast cancer. 3. Screening mammogram will be due in April 2025. She states she will get the order slip from Dr. Gabe Corrigan, whom she sees regularly. 4. Osteoporosis prevention was discussed. I have stressed the importance of adequate calcium, vitamin D and regular exercise. Recommended amounts of calcium and vitamin D were also discussed. We did receive a copy of her last bone density test which was done on 07/26/2022 and was normal. This was done at [facility]. We will plan on repeating this approximately in 2027. 5. We have discussed her weight gain over the past year. I have stressed the importance of good nutrition and regular exercise. We have discussed the importance of regular meals and adequate fiber. 6. She was advised to return in one year for her annual well woman exam.
== END ==
LOC: WWCWWP 07:48
PROVIDERS: ATTEND Obstetrics & Gynecology
DX: Z01.419 Encounter for gynecological examination (general) (routine) without abnormal findings (principal); Z88.5 Allergy status to narcotic agent; Z80.3 Family history of malignant neoplasm of breast